=== PATIENT | female | born 1985 | race Two or more races ===

== ENCOUNTER 2017-10-16 15:17 | Emergency (ER) | payer OTHER ==
[2017-10-16 15:22] VITALS: BMI 29.6
--- NOTE | 2017-10-16 15:47 | PDOC ---
History of Present Illness - General History Source: Patient Exam Limitations: No Limitations - History of Present Illness Initial Comments: 10/16/17 16:28 The patient is a 32 year old female, with no significant past medical history, who presents to the emergency department with left sided facial weakness for approximately 2 days. She noticed some weakness in her eyes and tingling in her left tongue eysterday. Today, patient reports she began to experience tongue stiffness, mouth numbness, and right sided facial droop. She denies any head trauma, headache, dizziness, lightheadedness, changes in vision, changes in speech, changes in gait, changes in taste, neck or back pain. She denies any recent illness, fever, chills, cough, or sore throat. She denies any abdominal pain, nausea, vomiting, diarrhea, constipation, or bowel incontinence. She denies any chest pain, shortness of breath, diaphoresis, or palpitations. Patient reports recent sick contacts at home who had cold symptoms, but denies any recent travel. Pt denies any other weakness, numbness/tingling of the arms/ legs, changes in her speech. Allergies: NKDA Past Surgical History: None reported. Social History: Non smoker. No ETOH or recreational drug use. <Deni Fraser - Last Filed: 10/16/17 16:28> <Shon Hernández - Last Filed: 10/16/17 16:58> - General Chief Complaint: Facial Droop Stated Complaint: FACIAL DROOP Time Seen by Provider: 10/16/17 15:27 Past History <Deni Fraser - Last Filed: 10/16/17 16:28> - Past Medical History Anemia: No Asthma: No Cancer: No Cardiac Disorders: No CVA: No COPD: No CHF: No Dementia: No Diabetes: No GI Disorders: No Disorders: No HTN: No Hypercholesterolemia: No Liver Disease: No Seizures: No Thyroid Disease: No Other medical history: denies - Surgical History Abdominal Surgery: No Appendectomy: No Cardiac Surgery: No Cholecystectomy: No Lung Surgery: No Neurologic Surgery: No Orthopedic Surgery: No - Reproductive History Para: 2 - Suicide/Smoking/Psychosocial Hx Smoking Status: No Smoking History: Never smoked Have you smoked in the past 12 months: No Number of Cigarettes Smoked Daily: 0 Hx Alcohol Use: No Drug/Substance Use Hx: No Substance Use Type: None Hx Substance Use Treatment: No <Shon Hernández - Last Filed: 10/16/17 16:58> - Past Medical History Allergies/Adverse Reactions: Allergies Allergy/AdvReac Type Severity Reaction Status Date / Time Shellfish Allergy Severe Hives Verified 10/16/17 15:18 Home Medications: Ambulatory Orders No Home Medications 1 ea MC ONCE 01/12/12 Acyclovir [Zovirax -] 400 mg PO QID #50 tablet 10/16/17 Peg 400/Hypromellose/Glycerin [Artificial Tears Drops] 15 ml OP Q2H #2 drops 01/26 predniSONE [Deltasone -] 60 mg PO DAILY #21 tablet 10/16/17 Review of Systems - Review of Systems Able to Perform ROS?: Yes Comments:: 10/16/17 16:29 Constitutional: +left sided facial weakness. Pt denies Fever, Chills HEENT: +L Tongue tingling, mouth numbness, right eye twitching, eye burning. Denies vision changes, sore throat Respiratory: Denies cough, sob, hemoptysis Cardiac: Denies chest pain, palpitations, lightheadedness, leg swelling Abd/GI: Denies abd pain, nausea, vomiting, blood per rectum, melena, diarrhea : Denies dysuria, frequency, discharge Musculoskeletal: Denies back pain, joint swelling Skin: Denies bruising, erythema, rash Neurological: +Right sided facial droop. Denies headache, focal weakness, tingling, ataxia Hematologic: Denies anemia, easy bruising, easy bleeding <Daxa Fraseria - Last Filed: 10/16/17 16:28> *Physical Exam - Vital Signs Last Vital Signs Temp Pulse Resp BP Pulse Ox 98.5 F 82 19 124/66 98 10/16/17 15:19 10/16/17 15:19 10/16/17 15:19 10/16/17 15:19 10/16/17 16:11 - Physical Exam Comments: 10/16/17 16:29 GENERAL: The patient is awake, alert, and fully oriented, Nontoxic - in no acute distress. HEAD: Normocephalic, atraumatic. EYES: extraocular movements intact, sclera anicteric, conjunctiva clear. ENT: Normal voice, Moist mucous membranes. NECK: Normal range of motion, supple LUNGS: Breath sounds equal, clear to auscultation bilaterally. No wheezes, no rhonchi, no rales. HEART: Regular rate and rhythm, normal S1 and S2 without murmur, rub or gallop. ABDOMEN: Soft, nontender No guarding, no rebound. EXTREMITIES: Normal range of motion, no edema. NEUROLOGICAL: flattened L nasolabial folds, moderate weakness of V1, V2, V3 ( some movement present), +deminished taste to sugar/salt on L side of face, normal sensation bilaterally in face, arms/legs. Normal symmetric sensation in arms/legs bilaterally. normal gait. neg romberg. no drift SKIN: Warm, Dry, normal turgor, <Deni Fraser - Last Filed: 10/16/17 16:28> - Vital Signs Last Vital Signs Temp Pulse Resp BP Pulse Ox 98.5 F 82 19 124/66 100 10/16/17 15:19 10/16/17 15:19 10/16/17 15:19 10/16/17 15:19 10/16/17 15:19 <Shon Hernández - Last Filed: 10/16/17 16:58> Heart Score/ECG Review - ECG Impressions Comment:: 10/16/17 16:40 Twelve-lead EKG was performed and reviewed by me. There is normal sinus rhythm with a normal rate. Rate of 79 The axis is normal. The intervals are normal. There is normal R wave progression There are no ST or T wave abnormalities. Impression: Normal twelve-lead EKG <Shon Hernández - Last Filed: 10/16/17 16:58> ED Treatment Course - LABORATORY CBC & Chemistry Diagram: 10/16/17 15:53 10/16/17 15:53 - ADDITIONAL ORDERS Additional order review: 10/16/17 15:53 RBC 4.36 MCV 82.8 MCHC 34.4 RDW 15.0 D MPV 8.2 Neutrophils % 68.3 Lymphocytes % 24.4 Monocytes % 5.8 Eosinophils % 0.8 Basophils % 0.7 <Deni Fraser - Last Filed: 10/16/17 16:28> - LABORATORY CBC & Chemistry Diagram: 10/16/17 15:53 10/16/17 15:53 <Shon Hernández - Last Filed: 10/16/17 16:58> Medical Decision Making - Medical Decision Making 10/16/17 15:50 32y F no pmhx presents with facial weaknes x 2 days. no recent infections/fevers /chills. no associated visual changes, numbness/tingling/weakness. on exam pt is well appearing in no distress noted facial weakness to the left face with weakness of the L forehead also tested the pts taste, and she has deminished taste for sugar/ and salt on the L aspect of her tongue suspect bells palsy. will treat pt with stareds, antiviral, eye drops A portion of this note was documented by scribe services under my direction. I have reviewed the details of the note, within reason, and agree with the documentation with the following case summary and management plan written by me 10/16/17 16:57 Labs reviewed and is unremarkable Will discharge patient with PMD follow-up Return precautions were discussed I discussed the physical exam findings, ancillary test results and final diagnoses with the patient. I answered all of the patient's questions. The patient was satisfied with the care received and felt comfortable with the discharge plan and treatment plan. The patient will call their primary care physician within 24 hours to arrange follow-up and will return to the Emergency Department with any new, persistent or worsening symptoms. <Shon Hernández - Last Filed: 10/16/17 16:58> *DC/Admit/Observation/Transfer - Attestations Scribe Attestion: 10/16/17 16:30 Documentation prepared by Deni Fraser, acting as medical territory manager for Shon Hernández MD. <Deni Fraser - Last Filed: 10/16/17 16:28> - Discharge Dispostion Admit: No <Shon Hernández - Last Filed: 10/16/17 16:58> Diagnosis at time of Disposition: Fabian's palsy - Discharge Dispostion Disposition: HOME Condition at time of disposition: Improved - Prescriptions Prescriptions: Acyclovir [Zovirax -] 400 mg PO QID #50 tablet Peg 400/Hypromellose/Glycerin [Artificial Tears Drops] 15 ml OP Q2H #2 drops predniSONE [Deltasone -] 60 mg PO DAILY #21 tablet - Referrals Referrals: Sheldon Cid MD [Staff Physician] - - Patient Instructions Printed Discharge Instructions: DI for Fabian's Palsy Additional Instructions: Regrese al departamento de emergencia de inmediato con CUALQUIER sntoma nuevo, persistente o que empeore. Por favor, mantenga los ojos cerrados mientras duerme para evitar lesiones o el secado de los ojos. [employer] los esteroides y los medicamentos antivitrales segn lo recetado. DEBE llamar y hacer un seguimiento con connelly mdico maana para nataliia mayor evaluaci n de jarrett sntomas. Los resultados fueron discutidos con usted. Asegrese de que connelly mdico revise los resultados de connelly evaluacin de emergencia. Si tuvo alguna radiografa pavan connelly visita, fue mick de manera preliminar por m mismo, un radilogo la revisar y si hay algn hallazgo adicional, lo llamaremos. Return to the emergency department immediately with ANY new, persistent or worsening symptoms. Please keep your eyes closed when you are sleeping to prevent any injury or drying of the eyes. Take the steroids and antivitral medications as prescribed. You MUST call and follow up with your doctor tomorrow for further evaluation of your symptoms. Results were discussed with you. Please make sure your doctor reviews the results of your emergency evaluation. If you had any xrays during your visit, it was read preliminarily by myself, a Radiologist will review it and if there are any additional findings we will call you. Print Language: ARMENIAN
[2017-10-16 16:03] LABS: BASO % 0.7 % (0-2.0); EOS % 0.8 % (0-4.5); HEMATOCRIT 36.1 % (32.4-45.2); HEMOGLOBIN 12.4 GM/dL (10.7-15.3); LYMPH % 24.4 % (8-40); MCH 28.5 pg (25.7-33.7); MCHC 34.4 g/dl (32.0-36.0); MEAN CELL VOLUME 82.8 fl (80-96); MEAN PLT VOLUME 8.2 fl (7.5-11.1); MONO % 5.8 % (3.8-10.2); NEUT % 68.3 % (42.8-82.8); PLATELET COUNT 296 K/MM3 (134-434); RBC 4.36 M/mm3 (3.60-5.2); WHITE BLOOD COUNT 7.4 K/mm3 (4.0-10.0)
[2017-10-16 16:45] LABS: ALBUMIN 3.5 g/dl (3.4-5.0); ANION GAP 9 (8-16); BILIRUBIN,TOTAL 0.3 mg/dL (0.2-1.0); CALCIUM 9.1 mg/dL (8.5-10.1); CHLORIDE 105 mmol/L (98-107); CO2 24 mmol/L (21-32); CREATININE 0.6 mg/dL (0.55-1.02); GLUCOSE,RANDOM 128 mg/dL (74-106); POTASSIUM 3.8 mmol/L (3.5-5.1); SGOT/AST 31 U/L (15-37); SGPT/ALT 41 U/L (12-78); SODIUM 138 mmol/L (136-145); TOT PROT 7.9 g/dl (6.4-8.2)
[2017-10-16 16:48] LABS: ALK PHOS 129 U/L (45-117); BLOOD UREA NITROGEN 13 mg/dL (7-18)
[2017-10-16 17:12] VITALS: BP 110/71; PULSE 75; TEMP 98.1
--- NOTE | 2017-10-17 09:18 | EKG ---
Test Reason : Blood Pressure : / mmHG Vent. Rate : 079 BPM Atrial Rate : 079 BPM P-R Int : 164 ms QRS Dur : 076 ms QT Int : 376 ms P-R-T Axes : 039 058 048 degrees QTc Int : 431 ms NORMAL SINUS RHYTHM NORMAL ECG NO PREVIOUS ECGS AVAILABLE Confirmed by KHALIF TORRES, RIANNA ([id number]) on 10/17/2017 9:17:46 AM Referred By: Confirmed By:RIANNA CUADRA MD
== END 2017-10-16 17:12 | disposition home or self-care (01) ==
LOC: JER 15:17
DX: G51.0 Bell's palsy (principal)
CPT/HCPCS: 36415; 80053; 85025; 93005; 93010; 99285-25